=== PATIENT | male | born 1945 | race Caucasian/White ===

== ENCOUNTER → 2020-09-21 19:02 | Outpatient (ROUT) | payer OTHER, SELFPAY ==
[2020-09-21 19:30] LABS: Add Manual Diff / Slide Review NO; Basophils Absolute Auto 0 /uL (0-100); Basophils Percent Auto 0.6 % (0-2); Eosinophils Absolute Auto 200 /uL (0-450); Eosinophils Percent Auto 2.6 % (2-4); Hematocrit 32.8 % (41-53); Hemoglobin 10.7 g/dL (13.5-17.5); Lymphocytes Absolute Auto 700 /uL (1100-4500); Lymphocytes Percent Auto 12.5 % (25-40); Mean Corpuscular HGB Conc 32.6 % (30-36); Mean Corpuscular Hemoglobin 29.2 PG (26-34); Mean Corpuscular Volume 89.7 fL (80-100); Monocytes Absolute Auto 300 /uL (0-900); Monocytes Percent Auto 5.6 % (3-14); Neutrophils Absolute Auto 4600 /uL (1500-7000); Neutrophils Percent Auto 78.7 % (50-75); Platelet Count 151 X10^3/uL (150-400); Red Blood Cell Count 3.66 X10^6/uL (4.5-5.9); Red Cell Distribution Width 18.2 % (11.6-14.8); White Blood Cell Count 5.9 X10^3/uL (4.5-11.0)
[2020-09-21 19:40] LABS: Alanine Aminotransferase 28 IU/L (<50); Albumin 4.4 g/dL (3.5-5.0); Albumin Globulin Ratio 1.8 (1.0-2.8); Alkaline Phosphatase 65 U/L (38-126); Aspartate Aminotransferase 61 IU/L (17-59); BUN Creatinine Ratio 25.4 (6-22); Bilirubin Total 2.2 mg/dL (0.2-1.3); Blood Urea Nitrogen 49 mg/dL (9-20); Calcium 9.6 mg/dL (8.4-10.2); Carbon Dioxide 34 mmol/L (22-32); Chloride 103 mmol/L (98-107); Cholesterol 152 mg/dL (140-199); Globulin 2.5 g/dL (1.7-4.1); Glucose 113 mg/dL (80-110); HDL Cholesterol 44 mg/dL (40-60); HEMOLYSIS < 15 (0-50); LDL Cholesterol Calculated 87 mg/dL (<100); Phosphorous 3.9 mg/dL (2.3-3.7); Sodium 142 mmol/L (137-145); Total Protein 6.9 g/dL (6.3-8.2); Triglycerides 106 mg/dL (35-150); Uric Acid 7.3 mg/dL (3.5-8.5)
[2020-09-21 19:50] LABS: Vitamin D 25 Hydroxy (D3) 38.4 ng/mL (30.0-100.0)
[2020-09-21 20:22] LABS: Vitamin B12 586 pg/mL (239-931)
[2020-09-23 06:10] LABS: Parathyroid Hormone Int 96 pg/mL (15-65)
== END ==
PROVIDERS: Family Provider Physician Assistant; Visit Provider Internal Medicine
DX: N18.30 Chronic kidney disease, stage 3 unspecified (principal); E55.9 Vitamin D deficiency, unspecified; E78.2 Mixed hyperlipidemia; E53.8 Deficiency of other specified B group vitamins; I50.22 Chronic systolic (congestive) heart failure
CPT/HCPCS: 80053; 80061; 82306; 82607; 83970; 84100; 84443; 84550; 85025

== ENCOUNTER 2020-11-20 16:01 | Emergency (ER) | payer OTHER, SELFPAY ==
[2020-11-20 16:24] VITALS: BP 135/69; PULSE 68; RESP 18; TEMP 36.9; O2SAT 99; BMI 25.1
[2020-11-20 16:58] LABS: Add Manual Diff / Slide Review NO; Basophils Absolute Auto 0 /uL (0-100); Basophils Percent Auto 0.5 % (0-2); Eosinophils Absolute Auto 0 /uL (0-450); Eosinophils Percent Auto 0.2 % (2-4); Hematocrit 29.8 % (41-53); Hemoglobin 9.7 g/dL (13.5-17.5); Lymphocytes Absolute Auto 600 /uL (1100-4500); Lymphocytes Percent Auto 8.8 % (25-40); Mean Corpuscular HGB Conc 32.5 % (30-36); Mean Corpuscular Hemoglobin 29.5 PG (26-34); Mean Corpuscular Volume 90.7 fL (80-100); Monocytes Absolute Auto 400 /uL (0-900); Monocytes Percent Auto 6.5 % (3-14); Neutrophils Absolute Auto 5500 /uL (1500-7000); Platelet Count 107 X10^3/uL (150-400); Red Blood Cell Count 3.28 X10^6/uL (4.5-5.9); Red Cell Distribution Width 18.4 % (11.6-14.8); White Blood Cell Count 6.5 X10^3/uL (4.5-11.0)
[2020-11-20 17:31] LABS: Alanine Aminotransferase 41 IU/L (<50); Albumin Globulin Ratio 1.6 (1.0-2.8); Alkaline Phosphatase 70 U/L (38-126); Aspartate Aminotransferase 61 IU/L (17-59); BUN Creatinine Ratio 28.6 (6-22); Bilirubin Total 3.6 mg/dL (0.2-1.3); Blood Urea Nitrogen 66 mg/dL (9-20); Calcium 9.4 mg/dL (8.4-10.2); Carbon Dioxide 31 mmol/L (22-32); Chloride 102 mmol/L (98-107); Estimated Glomerular Filt Rate 27.6 mL/min (>60); Globulin 2.5 g/dL (1.7-4.1); Glucose 151 mg/dL (80-110); HEMOLYSIS < 15 (0-50); Lipase 102 U/L (23-300); Potassium 3.7 mmol/L (3.4-5.1); Sodium 141 mmol/L (137-145); Total Protein 6.5 g/dL (6.3-8.2)
[2020-11-20] MEDS: LIDOCAINE 2% (GLYDO) 6 ML GEL TOP (18:05)
--- NOTE | 2020-11-20 19:07 | ED_ITS ---
HPI - General Adult General Chief complaint: Urogenital-Male Stated complaint: CONSTIPATED X2days NOT ABLE TO PEE Time Seen by Provider: 11/20/20 18:49 Source: patient and family Mode of arrival: Wheelchair Limitations: no limitations History of Present Illness HPI narrative: Male who states that for the past couple days he has had some difficulty having bowel movements. He is concerned that he was constipated. Over the course of today he has also not been able to urinate. He did urinate this morning but was a small amount. Since that time he has been unable to produce any urine. He has never had any issues like this in the past. He did have a bowel movement prior to being brought back to the exam room. No vomiting. Related Data Allergies Allergy/AdvReac Type Severity Reaction Status Date / Time AILYN Inhibitors Allergy Unknown Unverified 08/09/17 13:10 Review of Systems Constitutional Constitutional: Denies fever(s) Cardiovascular Cardiovascular: Reports system reviewed and no additional complaints, except as documented Respiratory Respiratory: Reports system reviewed and no additional complaints, except as documented Gastrointestinal Gastrointestinal: Reports as per HPI Genitourinary Genitourinary: Reports as per HPI Musculoskeletal Musculoskeletal: Reports system reviewed and no additional complaints, except as documented Integumentary/Breasts Skin/Breast: Reports system reviewed and no additional complaints, except as documented Neurologic Neurologic: Reports system reviewed and no additional complaints, except as documented Endocrine Endocrine: Reports system reviewed and no additional complaints, except as documented Hematologic/Lymphatic On Anticoagulants: No Allergic/Immunologic Allergic/Immunologic: Reports system reviewed and no additional complaints, except as documented Patient History Medical History Anemia Episode of syncope Renal failure Social History Smoking Status: Never smoker Smoking Status: Never smoker alcohol intake frequency: a few times a month Alcohol type: beer Substance Use Type: does not use Exam Initial Vital Signs Initial Vital Signs: Vital Signs Temperature 98.4 F 11/20/20 16:24 Pulse Rate 68 11/20/20 16:24 Respiratory Rate 18 11/20/20 16:24 Blood Pressure 135/69 11/20/20 16:24 Pulse Oximetry 99 11/20/20 16:24 Const General: cooperative and healthy appearing [facility] Head: normal to inspection and normocephalic Eyes General: appearance normal, both eyes and all related structures Chest Chest: normal inspection of the chest Resp Effort & Inspection: normal respiratory effort Cardio Rate: regular rate GI Inspection: normal to inspection Palpation: soft General: bladder normal to palpation Skin General: no rashes or lesions noted Neuro General: patient alert, patient awake, patient oriented x3 and moves all extremities Extrem General: normal to inspection and capillary refill normal Psych Appearance: grossly normal and well kempt Course Orders Ordered: Discontinued Medications Lidocaine HCl (Lidocaine 2% (Glydo) 6 Ml Gel) 6 ml TOP NOW ONE Stop: 11/20/20 18:01 Last Admin: 11/20/20 18:05 Dose: 6 ml Documented by: SOMMEROT[place] Vital Signs Vital signs: Vital Signs - 8 hr 11/20/20 19:36 Pulse Rate 70 Respiratory Rate 14 Blood Pressure 117/65 Pulse Oximetry 97 Medical Decision Making Lab Data Lab results reviewed: Yes I reviewed the patient's lab results. Result diagrams: 11/20/20 16:50 11/20/20 16:50 Labs: Lab Results 11/20/20 11/20/20 Range/Units 16:50 16:50 WBC 6.5 (4.5-11.0) X10^3/uL RBC 3.28 L (4.5-5.9) X10^6/uL Hgb 9.7 L (13.5-17.5) g/dL Hct 29.8 L (41-53) % MCV 90.7 (80-100) fL MCH 29.5 (26-34) PG MCHC 32.5 (30-36) % RDW 18.4 H (11.6-14.8) % Plt Count 107 L (150-400) X10^3/uL Neut % (Auto) 84.0 H (50-75) % Lymph % (Auto) 8.8 L (25-40) % [place] % (Auto) 6.5 (3-14) % Eos % (Auto) 0.2 L (2-4) % Baso % (Auto) 0.5 (0-2) % Neut # (Auto) 5500 (9399-0300) /uL Lymph # (Auto) 600 L (0958-3473) /uL [place] # (Auto) 400 (0-900) /uL Eos # (Auto) 0 (0-450) /uL Baso # (Auto) 0 (0-100) /uL Sodium 141 (137-145) mmol/L Potassium 3.7 (3.4-5.1) mmol/L Chloride 102 (98-107) mmol/L Carbon Dioxide 31 (22-32) mmol/L BUN 66 H (9-20) mg/dL Creatinine 2.31 H (0.66-1.25) mg/dL Estimated GFR 27.6 L (>60) mL/min BUN/Creatinine Ratio 28.6 H (6-22) Glucose 151 H (80-110) mg/dL Calcium 9.4 (8.4-10.2) mg/dL Total Bilirubin 3.6 H (0.2-1.3) mg/dL AST 61 H (17-59) IU/L ALT 41 (<50) IU/L Alkaline Phosphatase 70 (38-126) U/L Total Protein 6.5 (6.3-8.2) g/dL Albumin 4.0 (3.5-5.0) g/dL Globulin 2.5 (1.7-4.1) g/dL Albumin/Globulin Ratio 1.6 (1.0-2.8) Lipase 102 (23-300) U/L Urine Dip Bedside Urine Glucose Negative Bedside Urine Bilirubin - Negative Bedside Urine Ketone - Negative Urine Specific [place] 1.025 Bedside Urine Occult Blood - Negative Bedside Urine pH 6.0 Bedside Urine Protein - Negative Bedside Urine Urobilinogen - Negative Bedside Urine Nitrite - Negative Bedside Urine Leukocytes - Negative Esterase Point of care testing: Urine Dip Bedside Urine Glucose Negative Bedside Urine Bilirubin - Negative Bedside Urine Ketone - Negative Urine Specific [place] 1.025 Bedside Urine Occult Blood - Negative Bedside Urine pH 6.0 Bedside Urine Protein - Negative Bedside Urine Urobilinogen - Negative Bedside Urine Nitrite - Negative Bedside Urine Leukocytes - Negative Esterase [facility] Narrative Medical decision making narrative: Patient had a bladder scan which showed greater than 500 cc of urine in his bladder and a Ward catheter placed prior to my initial evaluation. He had a approximately 800-900 cc return of urine after the catheter is placed and states that he feels much better afterwards. He now has a benign abdominal exam. His urine does not show any signs of infection. He does have a bump in his creatinine over a suspect that this is related to his urinary retention. Will discharge home with Ward catheter in place. I suspect that this is prostate related. He was given information to contact the local urologist. He is also going to contact his primary doctor. He was given return precautions and follow-up instructions. He expressed understanding and agreement. Discharge Plan Departure Patient Disposition: Home Clinical Impression: Acute retention of urine Instructions: How to Care for Your Ward Catheter -- Male, DI for Urinary Retention in Men Activity Restrictions/Additional Instructions: Recommend on Monday you contact your primary doctor for follow-up. You could also contact the urology department at the number provided below for follow-up as well. Return to the emergency department for any new or worsening symptoms Referrals: Loyda Moreau MD [Physician] -
[2020-11-20 19:36] VITALS: BP 117/65; PULSE 70; RESP 14; O2SAT 97
== END 2020-11-20 19:38 | disposition home or self-care (01) ==
PROVIDERS: Emergency Medicine; Emergency Provider Emergency Medicine; Family Provider Physician Assistant
DX: R33.8 Other retention of urine (principal)
CPT/HCPCS: 36415; 51798; 80053; 81003; 83690; 85025; 99283; 99284

== ENCOUNTER → 2021-01-15 10:08 | Outpatient (CLI) | payer OTHER, SELFPAY ==
[2021-01-15 13:55] LABS: Prostate Specific Antigen 1.05 ng/mL (0.10-4.00)
== END ==
PROVIDERS: Family Provider Physician Assistant; Referring Provider Specialist; Visit Provider Specialist
DX: N40.1 Benign prostatic hyperplasia with lower urinary tract symptoms (principal); N13.8 Other obstructive and reflux uropathy; R33.8 Other retention of urine
CPT/HCPCS: 36415; 84153

== ENCOUNTER → 2021-04-02 09:56 | Outpatient (CLI) | payer OTHER, SELFPAY ==
[2021-04-02 11:05] LABS: Alanine Aminotransferase 19 IU/L (<50); Albumin 3.8 g/dL (3.5-5.0); Albumin Globulin Ratio 1.7 (1.0-2.8); Alkaline Phosphatase 103 U/L (38-126); Aspartate Aminotransferase 46 IU/L (17-59); BUN Creatinine Ratio 17.9 (6-22); Bilirubin Total 3.6 mg/dL (0.2-1.3); Blood Urea Nitrogen 42 mg/dL (9-20); Carbon Dioxide 29 mmol/L (22-32); Chloride 107 mmol/L (98-107); Estimated Glomerular Filt Rate 27.2 mL/min (>60); Globulin 2.2 g/dL (1.7-4.1); Glucose 103 mg/dL (80-110); HEMOLYSIS 26 (0-50); Magnesium 2.6 mg/dL (1.6-2.3); Potassium 4.2 mmol/L (3.4-5.1); Sodium 144 mmol/L (137-145)
[2021-04-02 11:33] LABS: Thyroid Stimulating Hormone 4.78 uIU/mL (0.47-4.68)
[2021-04-02 11:34] LABS: Prostate Specific Antigen 0.926 ng/mL (0.10-4.00)
[2021-04-05 10:45] LABS: Cholesterol, Total 118 mg/dL (100-199); HDL-Cholesterol 29 mg/dL (>39); HDL-Particle (Total) 16.9 umol/L (>=30.5); LDL Particle 1332 nmol/L (<1000); LDL Size 20.6 nm (>20.5); LDL-Cholsterol 72 mg/dL (0-99); LP-IR Score 39 (<=45); Small LDL- Particle 668 nmol/L (<=527); Triglycerides 88 mg/dL (0-149)
== END ==
PROVIDERS: Specialist; Family Provider Physician Assistant; PCP Internal Medicine; Referring Provider Specialist; Visit Provider Specialist
DX: N40.1 Benign prostatic hyperplasia with lower urinary tract symptoms (principal); I49.5 Sick sinus syndrome; E78.00 Pure hypercholesterolemia, unspecified; N18.30 Chronic kidney disease, stage 3 unspecified; R94.5 Abnormal results of liver function studies; I49.3 Ventricular premature depolarization; R97.20 Elevated prostate specific antigen [PSA]
CPT/HCPCS: 36415; 80053; 80061; 83704; 83735; 84153; 84443

== ENCOUNTER 2021-06-26 10:05 | Emergency (ER) | payer OTHER, SELFPAY ==
[2021-06-26] VITALS (39 sets, daily range): BP systolic 89–102; BP diastolic 50–58; PULSE 63–69; RESP 17–30; TEMP 36.6; O2SAT 97–98; BMI 27.8
[2021-06-26 11:04] LABS: COVID19 -Nasal RAPID Negative (Negative)
--- NOTE | 2021-06-26 11:11 | ED.ABDPAIN ---
HPI - Abdominal Pain General Chief Complaint: Abdominal Pain Stated Complaint: paracentesis Time Seen by Provider: 06/26/21 10:27 Source: patient Mode of arrival: Family Vehicle Limitations: no limitations History of Present Illness HPI narrative: This is a 76-year-old male comes emergency department with complaint of abdominal swelling and need for paracentesis. Patient states he has had slowly increasing abdominal swelling since he was discharged from [place]. They have tried to set up outpatient paracentesis but were told that they could get in with grade checker. He and his states they have been told he has liver problems and kidney problems but are unclear about exactly what happened during his hospitalizations he was transferred from [facility] to [place]. Patient states he has had discomfort from the swelling, he denies chest pain or shortness of breath, he denies fevers or chills. He has had increasing distention of his abdomen, he has had some swelling of his lower extremities which he states stable. He has had increasing swelling of his left upper extremity which was present during the hospital he states it got better after he had a paracentesis and has been returning. He denies any pain in his arm. Patient states they have been trying to elevate his arm at home. He is unaware if he has any history of hepatitis-C. He does have a history of cardiac valve replacement approximately 10 years ago and they were trying to get ?a clip? for his heart but have not been able to do this. He has a defibrillator. He has not had any cardiac shocks. Allergic to Milad inhibitors. No tobacco, last alcohol was 5 years ago, no illicit. He is accompanied by his today. We did discuss that patient's typically require at least basic labs before having a paracentesis which patient and were unaware. Related Data Home Medications Medication Instructions Recorded Confirmed multivitamin 1 tab PO QAM 04/20/21 06/26/21 carvedilol 6.25 mg tablet 6.25 mg PO BID 06/26/21 06/26/21 finasteride 5 mg tablet 5 mg PO QAM 06/26/21 06/26/21 furosemide 40 mg tablet 40 mg PO QAM 06/26/21 06/26/21 hydralazine 25 mg tablet 25 mg PO TID 06/26/21 06/26/21 isosorbide dinitrate 10 mg tablet 10 mg PO TID 06/26/21 06/26/21 polyethylene glycol 3350 17 gram 17 g PO QAM 06/26/21 06/26/21 oral powder packet Allergies Allergy/AdvReac Type Severity Reaction Status Date / Time MILAD Inhibitors Allergy Unknown Verified 06/26/21 10:30 Review of Systems Review of Systems ROS Unobtainable: All systems reviewed & are unremarkable except as noted in HPI and below Patient History Medical History (Updated 06/26/21 @ 14:56 by Kim Herrera DO) Anemia Aortic stenosis Atrial fibrillation BPH w urinary obs/LUTS Chronic kidney disease Chronic systolic (congestive) heart failure Episode of syncope History of abdominal paracentesis History of urinary retention Mitral valve regurgitation Presence of combination internal cardiac defibrillator (ICD) and pacemaker Renal failure Severe pulmonary hypertension Surgical History (Updated 06/26/21 @ 13:14 by Liz Tirado RN) H/O mitral valve repair History of aortic valve replacement with bioprosthetic valve Family History Mother Cancer Father Hypertension Social History marital status: number of children: 3 occupational status: other Smoking Status: Never smoker alcohol intake: current caffeine: Yes Smoking Status: Never smoker alcohol intake frequency: a few times a month Alcohol type: beer Substance Use Type: does not use Exam Narrative Exam Narrative: GENERAL: Alert and oriented x three, chronically ill-appearing male in mild distress. HEENT: Head normocephalic, atraumatic, EOMI, pupils reactive, face symmetric, moist mucous membranes NECK: Supple, full range of motion CARDIOVASCULAR: Regular rate and rhythm without murmurs, rubs or gallops. RESPIRATORY: Breath sounds equal bilaterally, no wheezes rales or rhonchi. No tachypnea or accessory muscle use. ABDOMEN: Soft, nontender. Patient is distended but soft with fluid wave. Hypoactive bowel sounds all 4 quadrants. No guarding or rebound, rigidity, no mass. : No CVA tenderness EXTREMITIES: Normal range of motion, no clubbing. Patient has 1+ edema bilateral lower extremities. Patient has swelling with pitting edema of his left upper extremity. Neurovascularly intact. 2+ pulses all 4 extremities. Cap refill less than 2 seconds in all 4 extremities. NEUROLOGICAL: Cranial nerves II through XII grossly intact. Moving all extremities SKIN: Warm, dry, no petechiae, no rashes or lesions, patient does have small areas of ecchymosis on his upper extremities bilaterally. Initial Vital Signs Initial Vital Signs: Vital Signs Pulse Rate 64 06/26/21 10:26 Respiratory Rate 20 06/26/21 10:26 Pulse Oximetry 98 06/26/21 10:26 Procedures Paracentesis Time of procedure: 13:12 Time Out Performed: Yes Indication: Ascites Procedure: therapeutic paracentesis Location: RLQ Local Anesthetic: lidocaine 1% and with bicarb Amount of anesthesia used (mL): 5 Bedside Ultrasound Used: yes, real-time guidance (formal US confirmed and location marked ) Preparation: sterile prep and drape Fluid: bloody (patient states was blood on prior paracentesis. states was clear.) and sent to lab for analysis Course Orders Ordered: ED Orders 06/26/21 10:21 COVID19 -Nasal swab/Pre-Proc Stat 06/26/21 10:29 EKG-12 Lead Stat 06/26/21 11:21 US abdomen complete Stat US periph venous up extrem lt Stat 06/26/21 11:30 Ammonia (NH3) Stat Complete Blood Count AUTO DIFF Stat Comprehensive Metabolic Panel Stat Lipase Stat Partial Thromboplastin Time Stat Prothrombin Time INR Stat 06/26/21 13:25 Body Fluid Culture Stat Cell Count w Diff Body Fluid Stat Discontinued Medications Lidocaine/Sodium Bicarbonate (Lido 1%/Sod Bicarb 8.4% (10ml) 10 Ml Syringe) 10 ml INJ NOW ONE Stop: 06/26/21 14:39 Last Admin: 06/26/21 14:56 Dose: 10 ml Documented by: ATAYLOR Reevaluation(s) Reevaluation #1: Patient had persistent ooze. 2 sutures placed. Reviewed patient's labs, records from [place] which states patient was supposed to be hospice. His 1st paracentesis was traumatic and he ended up receiving a unit of PRBCs, FFP and cryoprecipitate and platelets, was on pressors and shift. Patient was DNR. He confirms his DNR/DNI status today. We discussed with his recurrent bloody peritoneal tap that I spoke with gastroenterology who recommends observation. Patient has already been clear that he does not wish in will not be transferred to another hospital. Time: 14:30 Reevaluation #2: On recheck patient use seems to have improved after placement of 2 sutures. Reviewed recommendations from Gastroenterology. Patient is adamant he does not wish to stay he understands that he can bleed to and . We reviewed that the last time this happened he required multiple pressors large amounts of transfusions and that if he goes home and returns in extremis we will be unlikely to help him. He would be much safer being observed but he politely declines. He is aware that he can return at any time and that he is welcome to do so. We did review that he is DNR/DNI and does not want cardiac resuscitation. His was present for this conversation. Time: 14:56 Consultations Consultation #1: Dr. Marie, gastroenterology at [place]. Recommends observation for serial labs overnight. If patient prefers to leave would have AMA. Time: 14:45 Vital Signs Vital signs: Vital Signs - 8 hr 06/26/21 10:26 06/26/21 10:30 06/26/21 10:31 Temperature 97.9 F Pulse Rate 64 64 64 Respiratory Rate 20 20 22 Blood Pressure 99/57 L 102/58 L Pulse Oximetry 98 98 97 06/26/21 11:00 06/26/21 11:13 06/26/21 11:30 Temperature Pulse Rate 65 65 64 Respiratory Rate 21 25 H 23 Blood Pressure 100/57 L Pulse Oximetry 98 98 97 06/26/21 12:00 06/26/21 12:03 06/26/21 12:30 Temperature Pulse Rate 65 66 63 Respiratory Rate 17 Blood Pressure 98/55 L 97/52 L Pulse Oximetry 98 98 97 06/26/21 12:35 06/26/21 13:00 06/26/21 13:05 Temperature Pulse Rate 65 64 66 Respiratory Rate 20 20 25 H Blood Pressure 97/52 L Pulse Oximetry 98 98 98 06/26/21 13:10 06/26/21 13:15 06/26/21 13:20 Temperature Pulse Rate 66 65 64 Respiratory Rate 22 22 23 Blood Pressure 98/53 L 98/54 L 98/54 L Pulse Oximetry 98 97 97 06/26/21 13:25 06/26/21 13:30 06/26/21 13:35 Temperature Pulse Rate 64 63 65 Respiratory Rate 19 17 24 Blood Pressure 99/56 L 96/52 L 89/52 L Pulse Oximetry 98 98 98 06/26/21 13:40 06/26/21 13:45 06/26/21 13:50 Temperature Pulse Rate 64 64 65 Respiratory Rate 20 22 21 Blood Pressure 90/55 L 100/56 L 100/58 L Pulse Oximetry 98 98 98 06/26/21 13:55 06/26/21 14:00 06/26/21 14:05 Temperature Pulse Rate 66 64 63 Respiratory Rate 23 20 17 Blood Pressure 92/52 L Pulse Oximetry 98 98 98 06/26/21 14:10 06/26/21 14:15 06/26/21 14:20 Temperature Pulse Rate 65 65 65 Respiratory Rate 19 20 21 Blood Pressure 90/53 L 96/55 L Pulse Oximetry 98 97 98 06/26/21 14:25 06/26/21 14:30 06/26/21 14:35 Temperature Pulse Rate 64 63 65 Respiratory Rate 22 20 22 Blood Pressure 93/54 L Pulse Oximetry 98 97 97 06/26/21 14:40 06/26/21 14:45 06/26/21 14:50 Temperature Pulse Rate 69 65 63 Respiratory Rate 30 H 22 19 Blood Pressure Pulse Oximetry 06/26/21 14:55 06/26/21 15:00 06/26/21 15:05 Temperature Pulse Rate 63 63 65 Respiratory Rate 21 18 21 Blood Pressure 95/50 L Pulse Oximetry 06/26/21 15:10 06/26/21 15:15 06/26/21 15:20 Temperature Pulse Rate 64 64 66 Respiratory Rate 17 18 25 H Blood Pressure 95/53 L 97/55 L Pulse Oximetry 98 MDM - Abdominal Pain Lab Data Result diagrams: 06/26/21 11:30 06/26/21 11:30 Labs: Lab Results 06/26/21 06/26/21 06/26/21 Range/Units 10:21 11:30 11:30 WBC 8.3 (4.5-11.0) X10^3/uL RBC 2.89 L (4.5-5.9) X10^6/uL Hgb 8.4 L (13.5-17.5) g/dL Hct 26.2 L (41-53) % MCV 90.7 (80-100) fL MCH 29.0 (26-34) PG MCHC 31.9 (30-36) % RDW 17.8 H (11.6-14.8) % Plt Count 244 (150-400) X10^3/uL Neut % (Auto) 86.2 H (50-75) % Lymph % (Auto) 5.4 L (25-40) % [place] % (Auto) 7.4 (3-14) % Eos % (Auto) 0.5 L (2-4) % Baso % (Auto) 0.5 (0-2) % Neut # (Auto) 7200 H (0883-4029) /uL Lymph # (Auto) 400 L (9191-2562) /uL [place] # (Auto) 600 (0-900) /uL Eos # (Auto) 0 (0-450) /uL Baso # (Auto) 0 (0-100) /uL PT 13.1 H (10.1-12.7) SECONDS INR 1.2 (0.9-1.3) APTT 30 (26.4-36.2) SECONDS Sodium (137-145) mmol/L Potassium (3.4-5.1) mmol/L Chloride (98-107) mmol/L Carbon Dioxide (22-32) mmol/L BUN (9-20) mg/dL Creatinine (0.66-1.25) mg/dL Estimated GFR (>60) mL/min BUN/Creatinine Ratio (6-22) Glucose (80-110) mg/dL Calcium (8.4-10.2) mg/dL Total Bilirubin (0.2-1.3) mg/dL AST (17-59) IU/L ALT (<50) IU/L Alkaline Phosphatase (38-126) U/L Ammonia (9-30) umol/L Total Protein (6.3-8.2) g/dL Albumin (3.5-5.0) g/dL Globulin (1.7-4.1) g/dL Albumin/Globulin Ratio (1.0-2.8) Lipase (23-300) U/L Fluid Color Fluid Appearance Fluid RBC /uL Fld Tot Nucleated Cell /uL Fluid Polynuclear WBCs % Fluid Mononuclear WBCs % Fluid Eosinophils % Fluid Other Cells Body Fluid Clot SARS-CoV-2 (PCR) Negative (Negative) 06/26/21 06/26/21 06/26/21 Range/Units 11:30 11:30 13:25 WBC (4.5-11.0) X10^3/uL RBC (4.5-5.9) X10^6/uL Hgb (13.5-17.5) g/dL Hct (41-53) % MCV (80-100) fL MCH (26-34) PG MCHC (30-36) % RDW (11.6-14.8) % Plt Count (150-400) X10^3/uL Neut % (Auto) (50-75) % Lymph % (Auto) (25-40) % [place] % (Auto) (3-14) % Eos % (Auto) (2-4) % Baso % (Auto) (0-2) % Neut # (Auto) (7812-5508) /uL Lymph # (Auto) (1376-2643) /uL [place] # (Auto) (0-900) /uL Eos # (Auto) (0-450) /uL Baso # (Auto) (0-100) /uL PT (10.1-12.7) SECONDS INR (0.9-1.3) APTT (26.4-36.2) SECONDS Sodium 134 L (137-145) mmol/L Potassium 5.0 (3.4-5.1) mmol/L Chloride 103 (98-107) mmol/L Carbon Dioxide 31 (22-32) mmol/L BUN 64 H (9-20) mg/dL Creatinine 1.92 H (0.66-1.25) mg/dL Estimated GFR 34.1 L (>60) mL/min BUN/Creatinine Ratio 33.3 H (6-22) Glucose 97 (80-110) mg/dL Calcium 7.7 L (8.4-10.2) mg/dL Total Bilirubin 3.4 H (0.2-1.3) mg/dL AST 66 H (17-59) IU/L ALT 21 (<50) IU/L Alkaline Phosphatase 75 (38-126) U/L Ammonia < 9 L (9-30) umol/L Total Protein 5.4 L (6.3-8.2) g/dL Albumin 2.8 L (3.5-5.0) g/dL Globulin 2.6 (1.7-4.1) g/dL Albumin/Globulin Ratio 1.1 (1.0-2.8) Lipase 178 (23-300) U/L Fluid Color Red Fluid Appearance Turbid Fluid RBC 589585 /uL Fld Tot Nucleated Cell 352 /uL Fluid Polynuclear WBCs 10 % Fluid Mononuclear WBCs 90 % Fluid Eosinophils 0 % Fluid Other Cells Not Reportable Body Fluid Clot No clots present SARS-CoV-2 (PCR) (Negative) Point of care testing: Urine Dip Bedside Urine Glucose Negative Bedside Urine Bilirubin - Negative Bedside Urine Ketone - Negative Urine Specific [place] 1.010 Bedside Urine Occult Blood - Negative Bedside Urine pH 6.5 Bedside Urine Protein - Negative Bedside Urine Urobilinogen 2+ 4mg Bedside Urine Nitrite - Negative Bedside Urine Leukocytes - Negative Esterase Imaging Data US - abdomen: Radiologist's Impression: Launch?Image [address] [address] Ultrasound Report Signed Patient: Manish Carr MR#: [id number] : 1945 Acct:[id number] Age/Sex: 76 / M Date of Service: 06/26/21 Loc: ED Accession Number: [id number] ?? Procedure: US abdomen complete Ordering Provider: Kim Herrera D.O. PROCEDURE:? US ABDOMEN COMPLETE ? INDICATIONS:? RENAL FAILURE; ASCITIES ? TECHNIQUE:? Real-time scanning was performed of the abdominal and retroperitoneal organs, with image documentation.? ? COMPARISON:? [facility], CT, CT ANGIO ABDOMEN PELVIS, 06/16/2021, 9:44.? [facility], US, ABDOMEN COMPLETE, 06/05/2013, 8:53. ? FINDINGS:? ? Liver:? Liver is normal in size.? Simple right hepatic cyst is present measuring 27 x 23 x 26 mm. ? Gallbladder:? Sludge versus small stones are identified.? Wall thickness is within normal limits measuring 1.7 mm. ? Biliary ducts:? Intrahepatic bile ducts are non-dilated.? Extrahepatic bile duct caliber measures 4.4 mm.? Normal is 6-7 mm or less in diameter, or 10 mm or less post-cholecystectomy.? ? Pancreas:? Not visualized. ? Spleen:? Spleen is normal in size and homogeneous in echotexture.? ? Kidneys:? Kidneys are normal in size and echotexture.? Right kidney measures 11.2 cm long; left kidney measures 9.9 cm long.? No hydronephrosis or nephrolithiasis.? No solid masses.? ? Aorta:? Not well seen. ? Iliacs:? Not well seen. ? IVC:? Not well seen. ? Miscellaneous:? 4 quadrant ascites is again noted. ? ? IMPRESSION:? ? 1. Small stones versus sludge without wall thickening. ? Dictated by: Karma Cuenca M.D. on 06/26/2021 at 12:22 ? ? Approved by: Karma Cuenca M.D. on 06/26/2021 at 12:23 US - DVT: Radiologist's Impression: Close Peripheral Vascular Ultrasound (Signed) Karma Cuenca - 06/26/21 Abdomen Ultrasound (Signed) Karma Cuenca - 06/26/21 Radiology - Historical 07/26/16 Launch?[place] [address] Ultrasound Report Signed Patient: Manish Carr MR#: [id number] : 1945 Acct:[id number] Age/Sex: 76 / M Date of Service: 06/26/21 Loc: ED Accession Number: [id number] ?? Procedure: US periph venous up extrem lt Ordering Provider: Kim Herrera D.O. PROCEDURE:? US PERIPH VENOUS UP EXTREM LT ? INDICATIONS:? EDEMA ? TECHNIQUE:? Real-time imaging, as well as color and pulse Doppler interrogation, was performed of the left upper extremity deep veins from the inferior neck to the antecubital fossa.? ? COMPARISON:? None. ? FINDINGS:? The internal jugular vein, visualized portions of the subclavian vein, axillary, and brachial veins are free of intraluminal thrombus.? Where physically possible, the veins are normally compressible.? Color and pulse Doppler demonstrate normal intraluminal flow, with expected phasicity and pulsatility.? Additional scanning of the cephalic and basilic veins of the superficial system demonstrate normal compressibility, without thrombus.? Mild subcutaneous edema. ? IMPRESSION:? No deep venous thrombosis. ? ? Dictated by: Karma Cuenca M.D. on 06/26/2021 at 12:21 ? ? Approved by: Karma Cuenca M.D. on 06/26/2021 at 12:21?? ECG Data Attestation: I personally reviewed and interpreted this ECG as follows: Interpretation: Ventricularly paced rhythm with a rate of 64 [place] 200 QRS of 188 QTC of 532. MDM Narrative Medical decision making narrative: This is a 76-year-old male who states he was at [place] for liver problems and heart failure. He states he is here for paracentesis. Patient's labs show abnormalities consistent with chronic kidney disease, platelets, PT INR and hemoglobin appears stable from priors in our system. After discussion and risks versus benefits paracentesis was performed it was bloody which patient states happened last time. He states he has had 3 paracentesis in the past he states that some of them have been bloody his states that some of them have not. We were able to obtain records afterwards and he noted that patient non his paracentesis at [facility] developed hemorrhagic shock and had 8 units of PRBCs, 2 units of FFP, cryoprecipitate and 1 unit of platelets, CT angio which showed no active bleed with a meld 28, acute kidney injury with a creatinine 2.4. Patient was transferred on epi, nor epi and then dobutamine drip and was seen by surgery and thought to be a very poor surgical candidate. Patient was shift to [place] where he was seen, he had repeat paracentesis patient there with plan to continue to monitor hematocrit, transfuse blood products as necessary and consider angio or IR prefer to avoid in the settings of acute kidney injury. Fall patient was their discussion occurred about his DNR status he was DNR/DNI they discussed hospice but patient did not see them, patient requested DC would like him to see GI and or nephro but patient chose to leave prior to being seen by them inpatient. I discussed this with the patient after his paracentesis and they stated that this was consistent with their current understanding is that he has possibly 3-6 months to live. Patient case was discussed with GI who recommends observation serial labs and monitoring. Patient states he does not wish to be transferred he does not wish to be observed here in the hospital he understands the risks and that he could and that he was very close to earlier this month. He does understand that he can return at any time and that he would likely not survive if he continues to bleed. Patient and are both at bedside all questions answered. Patient continued to be monitored and he does not have any additional ooze afterwards. Reviewed and offered observation again. Discharge Plan Departure Patient Disposition: Left Against Medical Advice Clinical Impression: Ascites, Bloody peritoneal effusion Instructions: DI for Ascites Activity Restrictions/Additional Instructions: It is recommended that you stay by gastroenterology and myself for observation, you had a traumatic or bloody paracentesis. You can continue to bleed like you did last time and . You are welcome to return at any time for re-evaluation. Culture is also pending at this time and infection is not completely ruled out. I would recommend having at least a repeat blood count checked in the next 24 hours. There are 2 sutures in your right lower abdomen these can be removed in 7-10 days by primary care, urgent care or the emergency department. Continue home medications as prescribed. Please return for fevers, new worsening abdominal pain, shortness of breath, lightheadedness or passing out, increasing swelling of your extremities, fluid or bleeding continuously leaking from the paracentesis site or other new or concerning symptoms. Prescriptions: No Action furosemide 40 mg tablet 40 mg PO QAM 0RF isosorbide dinitrate 10 mg tablet 10 mg PO TID 0RF carvedilol 6.25 mg tablet 6.25 mg PO BID 0RF polyethylene glycol 3350 17 gram Powder In Packet 17 g PO QAM 0RF hydralazine 25 mg tablet 25 mg PO TID 0RF finasteride 5 mg tablet 5 mg PO QAM 0RF multivitamin Tablet 1 tab PO QAM 0RF Referrals: Petros Servin MD [Primary Care Provider] - Stand Alone Forms: Against Medical Advice
--- NOTE | 2021-06-26 11:21 | DI.US.S_ITS ---
PROCEDURE: US PERIPH VENOUS UP EXTREM LT INDICATIONS: EDEMA TECHNIQUE: Real-time imaging, as well as color and pulse Doppler interrogation, was performed of the left upper extremity deep veins from the inferior neck to the antecubital fossa. COMPARISON: None. FINDINGS: The internal jugular vein, visualized portions of the subclavian vein, axillary, and brachial veins are free of intraluminal thrombus. Where physically possible, the veins are normally compressible. Color and pulse Doppler demonstrate normal intraluminal flow, with expected phasicity and pulsatility. Additional scanning of the cephalic and basilic veins of the superficial system demonstrate normal compressibility, without thrombus. Mild subcutaneous edema. IMPRESSION: No deep venous thrombosis. Dictated by: Karma Cuenca M.D. on 06/26/2021 at 12:21 Approved by: Karma Cuenca M.D. on 06/26/2021 at 12:21
--- NOTE | 2021-06-26 11:21 | DI.US.S_ITS ---
PROCEDURE: US ABDOMEN COMPLETE INDICATIONS: RENAL FAILURE; ASCITIES TECHNIQUE: Real-time scanning was performed of the abdominal and retroperitoneal organs, with image documentation. COMPARISON: Located Within [facility], CT, CT ANGIO ABDOMEN PELVIS, 06/16/2021, 9:44. [facility], US, ABDOMEN COMPLETE, 06/05/2013, 8:53. FINDINGS: Liver: Liver is normal in size. Simple right hepatic cyst is present measuring 27 x 23 x 26 mm. Gallbladder: Sludge versus small stones are identified. Wall thickness is within normal limits measuring 1.7 mm. Biliary ducts: Intrahepatic bile ducts are non-dilated. Extrahepatic bile duct caliber measures 4.4 mm. Normal is 6-7 mm or less in diameter, or 10 mm or less post-cholecystectomy. Pancreas: Not visualized. Spleen: Spleen is normal in size and homogeneous in echotexture. Kidneys: Kidneys are normal in size and echotexture. Right kidney measures 11.2 cm long; left kidney measures 9.9 cm long. No hydronephrosis or nephrolithiasis. No solid masses. Aorta: Not well seen. Iliacs: Not well seen. IVC: Not well seen. Miscellaneous: 4 quadrant ascites is again noted. IMPRESSION: 1. Small stones versus sludge without wall thickening. Dictated by: Karma Cuenca M.D. on 06/26/2021 at 12:22 Approved by: Karma Cuenca M.D. on 06/26/2021 at 12:23
[2021-06-26 11:48] LABS: Add Manual Diff / Slide Review NO; Basophils Absolute Auto 0 /uL (0-100); Basophils Percent Auto 0.5 % (0-2); Eosinophils Absolute Auto 0 /uL (0-450); Eosinophils Percent Auto 0.5 % (2-4); Hematocrit 26.2 % (41-53); Hemoglobin 8.4 g/dL (13.5-17.5); Lymphocytes Absolute Auto 400 /uL (1100-4500); Lymphocytes Percent Auto 5.4 % (25-40); Mean Corpuscular HGB Conc 31.9 % (30-36); Mean Corpuscular Volume 90.7 fL (80-100); Monocytes Absolute Auto 600 /uL (0-900); Monocytes Percent Auto 7.4 % (3-14); Neutrophils Absolute Auto 7200 /uL (1500-7000); Neutrophils Percent Auto 86.2 % (50-75); Platelet Count 244 X10^3/uL (150-400); Red Blood Cell Count 2.89 X10^6/uL (4.5-5.9); Red Cell Distribution Width 17.8 % (11.6-14.8); White Blood Cell Count 8.3 X10^3/uL (4.5-11.0)
[2021-06-26 11:59] LABS: INR 1.2 (0.9-1.3); Prothrombin Time 13.1 SECONDS (10.1-12.7)
[2021-06-26 12:01] LABS: PTT Partial Thromboplastin Tim 30 SECONDS (26.4-36.2)
[2021-06-26 12:02] LABS: Alanine Aminotransferase 21 IU/L (<50); Albumin 2.8 g/dL (3.5-5.0); Albumin Globulin Ratio 1.1 (1.0-2.8); Alkaline Phosphatase 75 U/L (38-126); Aspartate Aminotransferase 66 IU/L (17-59); BUN Creatinine Ratio 33.3 (6-22); Bilirubin Total 3.4 mg/dL (0.2-1.3); Blood Urea Nitrogen 64 mg/dL (9-20); Calcium 7.7 mg/dL (8.4-10.2); Carbon Dioxide 31 mmol/L (22-32); Chloride 103 mmol/L (98-107); Estimated Glomerular Filt Rate 34.1 mL/min (>60); Globulin 2.6 g/dL (1.7-4.1); Glucose 97 mg/dL (80-110); HEMOLYSIS < 15 (0-50); Lipase 178 U/L (23-300); Sodium 134 mmol/L (137-145); Total Protein 5.4 g/dL (6.3-8.2)
[2021-06-26 12:03] LABS: Ammonia (NH3) < 9 umol/L (9-30)
[2021-06-26] MEDS: LIDO 1%/SOD BICARB 8.4% (10ML) 10 ML SYRINGE 20 ML INJ (13:15)
--- NOTE | 2021-06-26 14:03 | PC.NURSE ---
Paracentesis performed by Dr. Herrera, 1750ml sanguineous colored fluid removed.
[2021-06-26 14:30] LABS: Body Fluid Red Blood Cells 148344 /uL; Body Fluid Tot Nucleated Cells 352 /uL
[2021-06-26 14:54] LABS: Body Fluid Appearance TURBID; Body Fluid Clotted? NO CLOTS PRESENT; Body Fluid Color RED; Eosinophils Body Fluid 0 %; Mononuclear WBC Body Fluid 90 %; Polynuclear WBC Body Fluid 10 %
[2021-06-26] MEDS: LIDO 1%/SOD BICARB 8.4% (10ML) 10 ML SYRINGE INJ (14:56)
== END 2021-06-26 15:30 | disposition left against medical advice (07) ==
PROVIDERS: Emergency Provider Emergency Medicine; Family Provider Physician Assistant; PCP Internal Medicine
DX: R18.8 Other ascites (principal); K66.1 Hemoperitoneum; R03.1 Nonspecific low blood-pressure reading; Z20.822 Contact with and (suspected) exposure to COVID-19
CPT/HCPCS: 36415; 76700; 80053; 81003; 82140; 83690; 85025; 85610; 85730; 87070; 87075; 87205; 87635; 89051; 93005; 93971; 99284; C9803

== ENCOUNTER → 2022-04-05 08:35 | Outpatient (CLI) | payer OTHER, SELFPAY | PROVIDERS: Family Provider Physician Assistant; PCP Internal Medicine; Visit Provider Specialist | DX: N40.1 Benign prostatic hyperplasia with lower urinary tract symptoms (principal); N13.8 Other obstructive and reflux uropathy; R33.9 Retention of urine, unspecified; R31.9 Hematuria, unspecified; Z87.898 Personal history of other specified conditions | CPT/HCPCS: 87077; 87086; 87186 ==

== ENCOUNTER → 2022-10-05 08:41 | Outpatient (CLI) | payer OTHER, SELFPAY | PROVIDERS: Family Provider Physician Assistant; Visit Provider Specialist | DX: N40.1 Benign prostatic hyperplasia with lower urinary tract symptoms (principal); N13.8 Other obstructive and reflux uropathy; R31.9 Hematuria, unspecified; R81 Glycosuria; Z87.898 Personal history of other specified conditions | CPT/HCPCS: 51798; 81002; 87077; 87086; 87186; 99214 ==

== ENCOUNTER → 2023-02-16 10:28 | Outpatient (CLI) | payer OTHER, SELFPAY ==
--- NOTE | 2023-02-16 | DI.ECHO.S_ITS ---
[facility] +---------+ : : [address] : : : : [id number] : : : : Phone: [phone]---------+ Echocardiogram Report + + :Name: ISAURO LONG Study Date: 02/16/2023 Height: 70 in : :[facility] ReadingLocation: Weight: 190 lb : : Gender: Male BSA: 2.0 m2 : :: 1945 Age: 78 yrs BP: 101/76 mmHg: :Reason For Study: SYSTOLIC HEART FAILURE : :Ordering Physician: NITHIN, : :LORENZO Performed By: Irina Alfaro : :Referring: LORENZO WELLER : + + Interpretation Summary Left ventricular systolic function is severely reduced, now with an ejection fraction around 20 to 25% with a significant dyssynchronous contraction pattern and severe global hypokinesis, with near akinesis of the inferior and lateral gunn which appears worse compared to the previous study. Global contractility is also significantly reduced. There is moderate left ventricular enlargement, slightly larger compared to the previous study. While diastolic function and filling pressures are challenging to assess, they are likely significantly elevated. The right ventricle is moderately enlarged and moderately hypokinetic and appears larger and less dynamic compared to the previous study. Right ventricular systolic pressure is estimated at 46 mmHg with a CVP of 15 mmHg, both likely significantly higher compared to the previous exam. There is severe left atrial enlargement and moderate right atrial enlargement but both are similar to the previous exam. There is a bioprosthetic mitral valve with a probable mild to moderate regurgitant jet that appears to originate from the lateral aspect of the prosthesis, consistent with a perivalvular regurgitation that is new from the previous study and mild central mitral regurgitation that is also slightly more prominent. There is probable moderate to severe tricuspid regurgitation that is also significantly more prominent compared to the previous study. The bioprosthetic aortic valve leaflets are mildly calcified but not well seen and likely have at least mildly reduced leaflet mobility. The peak transvalvular velocity of 1.6 m/s has decreased from the previous exam of 2.6 m/s but this may be due to the reduced cardiac output as the severity ratio has decreased from 0.29 down to 0.19, concerning for possible significant aortic stenosis. There is mild pulmonic valve regurgitation that grossly appears unchanged. Procedure: A two-dimensional transthoracic echocardiogram with color flow and Doppler was performed. The study quality was technically adequate. There is no prior echocardiogram noted for this patient. The patient has a paced rhythm. The heart rate ranged between 80 bpm during the study. Left Ventricle: The estimated left ventricular end diastolic volume is 174 mL compared to the previous 167 ml. The left ventricle is moderately dilated. Left ventricular systolic function is severely reduced. The ejection fraction is estimated to be 20-25%. There is a significant dyssynchronous contraction pattern due to the paced rhythm. There is severe global hypokinesis of the left ventricle. This is worse in the inferior and lateral segments which are nearly akinetic which appears more profound compared to the previous study and global contractility has declined with a more dyssynchronous contraction pattern. Diastolic function could not be accurately assessed due to unobtainable data. Right Ventricle: There is a pacemaker lead in the right ventricle. The right ventricle is moderately dilated. Right ventricular systolic function is moderately reduced. This is Larger larger and less dynamic compared to the previous study. Atria: The left atrium is severely dilated. The right atrium is moderately dilated. This is unchanged compared to the previous study. There is no Doppler evidence for an interatrial shunt. Mitral Valve: There is a bioprosthetic mitral valve. 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 The mitral valve mean gradient is 4.2 mmHg. There is mild mitral regurgitation. This is more prominent compared to the previous study. Aortic Valve: The aortic valve is mildly calcified. There is a bioprosthetic aortic valve. The prosthetic aortic valve is not well visualized. The peak aortic velocity is 1.6 m/sec. The peak aortic velocity on the previous exam was 2.6 m/sec. The severity ratio has decreased from 0.29 down to 0.19. There is trace aortic regurgitation. Tricuspid Valve: The tricuspid valve leaflets are thin and pliable. There is moderate to severe tricuspid regurgitation. This is more prominent compared to the previous study. The right ventricular systolic pressure is estimated to be at least 46 mmHg based on an estimated right atrial pressure of 15 mm Hg. Both are likely significantly higher compared to the previous study. Pulmonic Valve: The pulmonic valve leaflets are thin and pliable; valve motion is normal. There is mild pulmonic regurgitation. This is unchanged compared to the previous study. Great Vessels: The aortic root is normal size. The ascending aorta is at the upper limits of normal in size. This is unchanged compared to the previous study. The IVC is dilated (diameter is greater than 2.1 cm) and it collapses less than 50% with a sniff. This suggests a high right atrial pressure of 15 mm Hg. Pericardium/ Pleura There is no pericardial effusion. There is no pleural effusion. MMode/2D Measurements & Calculations LVIDd: 6.3 cm LVOT diam: 2.0 cm LVIDs: 5.7 cm Ao root diam: 3.4 cm FS: 10.0 % asc Aorta Diam: 3.7 cm IVSd: 0.85 cm LVPWd: 0.89 cm LV milan. diameter/BSA (cm/m^2): 3.1 LV sys. diameter/BSA (cm/m^2): 2.8 LA A2 area: 24.7 cm2 RA long axis: 5.9 cm LA A4 area: 30.8 cm2 RA area: 24.4 cm2 LA length (vol): 6.4 cm RA vol: 86.2 ml LA vol: 101.5 ml RA : 42.2 ml/m2 LA vol index: 49.7 ml/m2 IVC diam: 2.3 cm RVD1 (basal): 6.0 cm TAPSE_phl: 1.3 cm RVD2 (mid): 4.7 cm TAPSE: 1.3 cm Doppler Measurements & Calculations Ao V2 max: 159.0 cm/sec LVOT Max Joel: 33.4 cm/sec Ao V2 mean: 116.4 cm/sec LV V1 max P.45 mmHg Ao max P.1 mmHg LV V1 VTI: 6.1 cm Ao mean P.8 mmHg GET(I,D): 0.59 cm2 Ao V2 VTI: 32.6 cm GET(V,D): 0.66 cm2 sev ratio: 0.19 GET indexed to BSA (cm^2/m^2): 0.29 AI P1/2t: 277.1 msec AI dec slope: 344.3 cm/sec2 MV E max joel: 130.1 cm/sec TR max joel: 279.2 cm/sec MV A max joel: 1.7 cm/sec TR max P.2 mmHg MV E/A: 78.1 PA V2 max: 59.3 cm/sec MV dec time: 0.20 sec PA V2 mean: 41.0 cm/sec MVA(VTI): 0.57 cm2 PA mean P.70 mmHg MV V2 mean: 91.1 cm/sec SV(LVOT): 19.2 ml MV mean P.2 mmHg MV V2 VTI: 34.0 cm Reading Physician:04:23 PM
[2023-02-16 12:01] LABS: Add Manual Diff / Slide Review NO; Basophils Absolute Auto 0 /uL (0-100); Basophils Percent Auto 0.3 % (0-2); Eosinophils Absolute Auto 0 /uL (0-450); Eosinophils Percent Auto 0.3 % (2-4); Hematocrit 40.4 % (41-53); Hemoglobin 13.2 g/dL (13.5-17.5); Lymphocytes Absolute Auto 400 /uL (1100-4500); Lymphocytes Percent Auto 4.3 % (25-40); Mean Corpuscular HGB Conc 32.6 % (30-36); Mean Corpuscular Volume 85.9 fL (80-100); Monocytes Absolute Auto 600 /uL (0-900); Monocytes Percent Auto 6.2 % (3-14); Neutrophils Absolute Auto 8900 /uL (1500-7000); Neutrophils Percent Auto 88.9 % (50-75); Platelet Count 85 X10^3/uL (150-400); Red Blood Cell Count 4.71 X10^6/uL (4.5-5.9); Red Cell Distribution Width 19.4 % (11.6-14.8)
[2023-02-16 12:21] LABS: Alanine Aminotransferase 40 IU/L (<50); Albumin 3.7 g/dL (3.5-5.0); Albumin Globulin Ratio 1.4 (1.0-2.8); Alkaline Phosphatase 91 U/L (38-126); Aspartate Aminotransferase 29 IU/L (17-59); BUN Creatinine Ratio 32.1 (6-22); Bilirubin Total 3.1 mg/dL (0.2-1.3); Blood Urea Nitrogen 68 mg/dL (9-20); Calcium 8.8 mg/dL (8.4-10.2); Carbon Dioxide 32 mmol/L (22-32); Chloride 99 mmol/L (98-107); Estimated Glomerular Filt Rate 31 mL/min (>60); Globulin 2.6 g/dL (1.7-4.1); Glucose 127 mg/dL (80-110); HEMOLYSIS < 15 (0-50); Magnesium 2.8 mg/dL (1.6-2.3); Potassium 3.5 mmol/L (3.4-5.1); Sodium 141 mmol/L (137-145); Total Protein 6.3 g/dL (6.3-8.2)
[2023-02-16 12:28] LABS: NT-proBNP (BNP-Adult 18+) 20000 pg/mL (<450)
== END ==
PROVIDERS: Family Provider Physician Assistant; PCP Student in an Organized Health Care Education/Training Program; Referring Provider Specialist; Visit Provider Specialist
DX: I48.19 Other persistent atrial fibrillation (principal); D63.1 Anemia in chronic kidney disease; I50.22 Chronic systolic (congestive) heart failure; N18.32 Chronic kidney disease, stage 3b; I51.7 Cardiomegaly; Z95.2 Presence of prosthetic heart valve; I34.0 Nonrheumatic mitral (valve) insufficiency; I37.1 Nonrheumatic pulmonary valve insufficiency
CPT/HCPCS: 36415; 80053; 83735; 83880; 85025; 93306